=== PATIENT | male | born 1940 | race Caucasian/White ===

== ENCOUNTER 2020-01-30 18:25 | Emergency (ER) | payer OTHER, MEDICARE, SELFPAY ==
[2020-01-30] VITALS (10 sets, daily range): BP systolic 119–142; BP diastolic 82–94; PULSE 87–97; RESP 16–18; TEMP 36.5; O2SAT 90–97; BMI 19.8
--- NOTE | 2020-01-30 18:33 | HMH.EDGENADL ---
ED Disposition Condition on Discharge: Fair - Critical Care Critical Care Time: No <TuanStephen farah - Last Filed: 01/30/20 20:06> <Abelardo Street - Last Filed: 01/30/20 23:10> Clinical Impression: Hypoxia, Peripheral edema, Generalized pain Hepatic cancer Qualifiers: Liver malignancy type: unspecified liver malignancy Qualified Code(s): C22.9 - Malignant neoplasm of liver, not specified as primary or secondary Disposition: Xfer Short-Term Hosp Referrals: PCP,No [Primary Care Provider] - Attestation: On 01/30/20, the high probability of a clinically significant, sudden or life threatening deterioration of the following system(s) required my full and direct attention, intervention and personal management. The time I documented below is in addition to time spent performing reported procedures but includes the following listed in this critical care notation. Medical Decision Making - José Miguel Inquiry Pt receiving controlled substance: Yes José Miguel was queried for this patient: No Reason not queried -: Emergent pt cond-no time Risks and benefits of using a controlled substance: were not discussed with pt by me - Lab Data Result diagrams: 01/30/20 18:54 01/30/20 18:54 - Radiology Data #1 Image(s): Chest Image Reviewed: Yes I reviewed the patient's radiology image <Stephen Galarza - Last Filed: 01/30/20 20:06> - Lab Data Lab results reviewed: Yes: I reviewed the patient's lab results. Result diagrams: 01/30/20 18:54 01/30/20 18:54 - CT Data CT Scan: Chest Time Received: 23:[address] Reviewed: Yes: I have viewed the radiologist's interpretation Preliminary Findings: Abnormal (no pul emboli - liver cancer with meds ) - Physician Consults Physician Consulted: co - aojennifer - dr francis Reason -: Transfer to another facilty <Abelardo Street - Last Filed: 01/30/20 23:10> Vital Signs: 01/30/20 18:25 Temperature 97.7 F Temperature Source Oral Pulse Rate [Right Radial] 94 H Respiratory Rate 18 Blood Pressure [Right Arm] 142/89 H Blood Pressure Mean [Right Arm] 106 Blood Pressure Source [Right Arm] Automatic Cuff Blood Pressure Position [Right Arm] Sitting 02 Sat by Pulse Oximetry 90 L Oxygen Delivery Method Room Air - Lab Data Lab Results 01/30/20 18:54: WBC 5.0, RBC 5.76, Hgb 18.2 H*, Hct 54.9 H, MCV 95.2 H, MCH 31.7 H, MCHC 33.3, RDW 20.4 H, Plt Count 154, MPV 8.0, Neut % (Auto) 87.5 H, Lymph % (Auto) 7.9 L, [place] % (Auto) 4.4, Eos % (Auto) 0.0 L, Baso % (Auto) 0.2, Neut # (Auto) 4.3, Lymph # (Auto) 0.4 L, [place] # (Auto) 0.2, Eos # (Auto) 0.0, Baso # (Auto) 0.0, Total Counted 100, Neutrophils % (Manual) 93 H, Lymphocytes % (Manual) 4 L, Monocytes % (Manual) 3, Platelet Estimate Normal, RBC Morphology Normal 01/30/20 18:54: Sodium 126 L, Potassium 4.7, Chloride 94 L, Carbon Dioxide 27, Anion Gap 9.7, BUN 23 H, Creatinine 0.70, Estimated Creat Clear 52, Estimated GFR 109, Est GFR ( Amer) 132, Glucose 63 L, Calcium 9.2, Total Bilirubin 2.1 H, AST 831 H*, ALT 127 H, Alkaline Phosphatase 361 H, Troponin I 0.02, Total Protein 6.2 L, Albumin 3.0 L, Globulin 3.2, Albumin/Globulin Ratio 0.9 L 01/30/20 18:54: Lactate 1.5 01/30/20 18:54: SARS-CoV-2 IgG Ab (Rapid) Negative, SARS-CoV-2 IgM Ab (Rapid) Negative 01/30/20 18:54: NT-Pro-B Natriuret Pep 1010 H 01/30/20 21:43: Urine Color Yellow, Urine Appearance Clear, Urine pH 6.0, Ur Specific [place] 1.025, Urine Protein Trace, Urine Glucose (UA) Negative, Urine Ketones 1+, Urine Blood Trace-i, Urine Nitrate Negative, Urine Bilirubin Negative, Urine Urobilinogen 0.2, Ur Leukocyte Esterase Negative, Urine WBC 5-10, Urine Bacteria Trace, Hyaline Casts 3-5, Fine Granular Casts 5- 0 01/30/20 21:50: Ammonia 10 Orders (Tests/Meds): ED MEDICATIONS Discontinued Medications Generic Name Dose Route Start Last Admin Trade Name Freq PRN Reason Stop Dose Admin Iopamidol 70 ml 01/30/20 21:23 01/30/20 21:24 Iopamidol-370 (76%);100ml Bottle IV 01/07
--- NOTE | 2020-01-30 18:41 | XR_ITS ---
PROCEDURE: XR CHEST PORTABLE CLINICAL HISTORY: pain COMPARISON: CT CT ANGIO CHEST from 01/30/2020 FINDINGS: Prior CABG. Normal heart size. The emphysema, COPD. Surgical clip is present in the right lung base. No lobar consolidation or collapse. No acute bony abnormalities. IMPRESSION: COPD/emphysema. Prior CABG Dictated by: Mickey Guillermo MD 01/31/2020 06:59 Mickey Guillermo MD in [facility] 01/31/2020 06:59
--- NOTE | 2020-01-30 18:48 | PC.NURSE ---
rad at BS
--- NOTE | 2020-01-30 19:10 | ECG_ITS ---
APPROVED REPORT Exam: Resting ECG HR:94 bpm ECG Measurements Heart Rate 94 AXES CA 154 P 73 QRSd 84 QRS -45 QT 384 T 79 QTc 480 Conclusion Normal sinus rhythm Left axis deviation Late r wave progression Abnormal ECG Electronically signed by : Krishan Wharton, 01/31/2020 06:36:15
[2020-01-30 19:16] LABS: Basophils % 0.2 % (0.1-2.0); Chloride 94 mmol/L (98-107); Hematocrit 54.9 % (42.0-52.0); Lymphocytes # 0.4 K/mm3 (0.7-4.5); Lymphocytes % 7.9 % (10-50); Mean Corpuscular HGB Conc 33.3 g/dL (31.8-35.4); Mean Corpuscular Hemoglobin 31.7 pg (27.0-31.2); Mean Corpuscular Volume 95.2 fl (80-94); Monocytes # 0.2 K/mm3 (0.1-1.0); Monocytes % 4.4 % (1.7-9.3); Neutrophils # 4.3 K/mm3 (1.8-7.8); Neutrophils % 87.5 % (37.0-80.0); Platelet Count 154 K/mm3 (142-424); Potassium 4.7 mmoL/L (3.5-5.1); Red Blood Count 5.76 M/mm3 (4.60-6.20); Red Cell Distribution Width 20.4 % (11.5-17.5); Sodium 126 mmol/L (136-145)
[2020-01-30 19:18] LABS: Alanine Aminotransferase 127 U/L (12-78); Blood Urea Nitrogen 23 mg/dl (9-20); Creatinine Clearance Estimated 52 mL/min (50-200); Estimated Glomerular Filt Rate 109 ml/min (>60); GFR (African American) 132 ML/MIN (>60); MANUAL DIFFERENTIAL MANUAL DIFFERENTIAL (MANUAL DIFF)
[2020-01-30 19:19] LABS: Albumin/Globulin Ratio 0.9 (1.1-1.8); Alkaline Phosphatase 361 U/L (38-126); Anion Gap 9.7 mEq/L (5-15); Bilirubin,Total 2.1 mg/dl (0.2-1.3); Calcium 9.2 mg/dl (8.4-10.2); Carbon Dioxide 27 mmol/L (22.0-30.0); Globulin 3.2 g/dL (1.3-3.2); Glucose 63 mg/dl (74-100); Total Protein,Serum 6.2 g/dl (6.3-8.2)
[2020-01-30 19:22] LABS: Lactic Acid 1.5 mmol/L (0.7-2.1)
[2020-01-30 19:30] LABS: NT Pro Brain Natriuretic Pep. 1010 pg/mL (0-450)
[2020-01-30 19:31] LABS: Troponin I 0.02 ng/ml (0.00-0.034)
[2020-01-30 19:35] LABS: Hemoglobin 18.2 g/dL (14.1-18.0)
[2020-01-30 19:36] LABS: Aspartate Amino Transferase 831 U/L (17-59)
[2020-01-30 19:42] LABS: Coronavirus 19 IgG Antibody Negative (Negative); Coronavirus 19 IgM Antibody Negative (Negative)
[2020-01-30 19:45] LABS: Lymphocytes % 4 % (10-50); Monocytes % 3 % (2-9); Neutrophils % 93 % (42-76); Total Cells Counted 100
[2020-01-30 19:46] LABS: Platelet Estimate Normal; RBC Morphology Normal
--- NOTE | 2020-01-30 19:47 | CT_ITS ---
PROCEDURE: CT ANGIO CHEST CLINCIAL INDICATION: hypoxia, cancer, r/o PE History of cancer with chemotherapy COMPARISON: No exams were available for comparison TECHNIQUE: IV Contrast: 70ML Isovue 370 Axial images obtained with sagittal and coronal reformats. All CT scans at the facility use one or more dose reduction, viz: automated exposure control, ma/kV adjustment per patient size (including targeted exams where dose is matched to indication, i.e. head), or iterative reconstruction technique. FINDINGS: No previous exams available at this institution. No mediastinal or hilar mass or adenopathy. No evidence of pulmonary embolus aortic aneurysm or aortic dissection. 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 There is an area of increased density in the right apex posteriorly and may represent pleural thickening or scarring versus neoplasm. Please compare with old study if available. There are some scattered innumerable sub cm pulmonary nodules greater in the right lung compared to the left consistent with pulmonary metastasis. Atelectatic changes are present with trace left-sided effusion. Nodularity is noted in the left apex as well and could be due to neoplasm or fibrosis. There is a destructive lesion involving the medial aspect of the right 7th rib with associated soft tissue component Extensive multifocal heterogeneous masses throughout the right and left hepatic lobes incompletely imaged. Cholelithiasis is noted. There is a left adrenal mass measuring 4 cm consistent with metastatic disease. Compression deformity involves the T8 vertebral body age indeterminate with loss of height anteriorly of 50 percent. IMPRESSION: 1. No evidence of acute pulmonary embolus. 2. Findings compatible with metastatic disease with multiple liver lesions, small pulmonary nodules, left adrenal mass, and destructive lesion involving the right 7th rib posteriorly 3. Compression deformity of T8 age indeterminate. Dictated by: Mickey Guillermo MD 01/31/2020 08:17 Mickey Guillermo MD in [facility] 01/31/2020 08:17
--- NOTE | 2020-01-30 21:07 | PC.NURSE ---
PATIENT TO RADIOLOGY
[2020-01-30 21:48] LABS: Microscopic, Urine URINE MICROSCOPIC (MICROSCOPIC)
[2020-01-30 21:50] LABS: Appearance,Urine CLEAR (Clear); Blood, Urine TRACE-I (Negative); Color,Urine YELLOW (Yellow); Glucose,Urine (UA) Negative (Negative); Ketones,Urine 1+ (Negative); Leukocyte Esterase,Urine Negative (Negative); Nitrate,Urine Negative (Negative); Protein,Urine TRACE (Negative); Specific Gravity, Urine 1.025 (1.005-1.030); Urobilinogen,Urine 0.2 EU/dl (0.2)
[2020-01-30 22:11] LABS: Ammonia 10 umol/L (9-30)
[2020-01-30 22:18] LABS: Bilirubin,Urine Negative (Negative)
[2020-01-30 22:19] LABS: Bacteria,Urine Trace /lpf
--- NOTE | 2020-01-30 23:02 | PC.NURSE ---
on the phone with [facility] re: transfer
[2020-01-30 23:31] LABS: Troponin I 0.01 ng/ml (0.00-0.034)
[2020-01-31] VITALS: BP 143/72; PULSE 85; O2SAT 96
[2020-01-31 00:37] VITALS: BP 143/72; PULSE 85; RESP 16; TEMP 36.6; O2SAT 96
== END 2020-01-31 00:29 | disposition short-term general hospital (02) ==
PROVIDERS: Emergency Medicine; Emergency Provider Emergency Medicine
DX: R09.02 Hypoxemia (principal); C22.9 Malignant neoplasm of liver, not specified as primary or secondary; Z79.899 Other long term (current) drug therapy; Z01.84 Encounter for antibody response examination
CPT/HCPCS: 71045; 71275; 80053; 81001; 82140; 83605; 83880; 84484; 85007; 85025; 86328; 87040; 93005; 96374; 96375; 99285; J2405; Q9967